=== PATIENT | male | born 1945 | race American Indian/Alaskan Native ===

== ENCOUNTER 2022-01-16 15:32 | Outpatient (CLI) | payer BC ==
[2022-01-16 16:44] LABS: Calcium 9.4 mg/dL (8.4-10.2)
== END 2022-01-16 15:33 | disposition home or self-care (01) ==
LOC: LAB 15:32
PROVIDERS: ATTEND Specialist
DX: I63.22 Cerebral infarction due to unspecified occlusion or stenosis of basilar artery (principal)
CPT/HCPCS: 36415; 80048